=== PATIENT | male | born 1945 | race Caucasian/White ===

== ENCOUNTER 2023-04-02 12:59 | Inpatient (IN) | payer OTHER ==
[2023-04-02 14:03] LABS: INR 1.08 (0.83-1.09); PROTHROMBIN TIME (PATIENT) 12.5 SEC (9.7-13.0)
[2023-04-02 14:16] LABS: HEMATOCRIT 48.4 % (35.4-49); HEMOGLOBIN 16.2 G/dL (11.7-16.9); MCH 31.1 pg (25.7-33.7); MCHC 33.4 g/dl (32.0-35.9); MEAN PLT VOLUME 10.5 fl (7.5-11.1); PLATELET COUNT 134.8 10^3/uL (134-434); WHITE BLOOD COUNT 7.2 10^3/uL (4.0-10.8)
[2023-04-02 14:21] LABS: ALBUMIN 3.9 g/dl (3.4-5.0); BILIRUBIN,TOTAL 1.4 mg/dl (0.2-1); CALCIUM 10.2 mg/dl (8.5-10.1); CREATININE 1.1 mg/dl (0.6-1.3); MAGNESIUM 1.9 mg/dL (1.8-2.4); POTASSIUM 3.4 mmol/L (3.5-5.1); TOT PROT 5.9 g/dl (6.4-8.2)
[2023-04-02 14:25] LABS: PLATELET ESTIMATE ADEQUATE
[2023-04-02 15:04] LABS: EPITHELIAL CELLS 0-5 /hpf
[2023-04-02 15:05] LABS: CALCIUM OXALATE CRYSTALS MODERATE /hpf (NONE SEEN)
[2023-04-02 15:09] LABS: N-TERMINAL BNP 413.5 pg/ml (5-450)
[2023-04-02 20:28] VITALS: BMI 36.9
[2023-04-02] MEDS ORDERED: SODIUM CHLORIDE 0.45% 1,000 ML IV SCH (23:45)
[2023-04-03] MEDS ORDERED: POTASSIUM CHLORIDE TABS 20 MEQ TABLET.ER (FP) PO ONE (00:15)
[2023-04-03] MEDS: ATORVASTATIN CA 20 MG TABLET (FP) PO SCH ×2 (01:07→21:58)
[2023-04-03 08:03] LABS: HEMATOCRIT 45.9 % (35.4-49); HEMOGLOBIN 15.1 G/dL (11.7-16.9); MCH 30.1 pg (25.7-33.7); MEAN CELL VOLUME 91.2 fl (80-96); MEAN PLT VOLUME 10.6 fl (7.5-11.1); RBC 5.03 10^6/uL (4.00-5.60); RDW 14.6 % (11.9-15.9); WHITE BLOOD COUNT 6.7 10^3/uL (4.0-10.8)
[2023-04-03 08:48] LABS: BILIRUBIN,TOTAL 1.4 mg/dl (0.2-1); CALCIUM 10.2 mg/dl (8.5-10.1); CREATININE 0.9 mg/dl (0.6-1.3); MAGNESIUM 1.9 mg/dL (1.8-2.4); PHOSPHOROUS 2.8 (2.5-4.9); POTASSIUM 3.9 mmol/L (3.5-5.1)
[2023-04-03] MEDS ORDERED: ENALAPRIL MALEATE 10 MG TABLET PO SCH (10:00)
[2023-04-03] MEDS ORDERED: ENOXAPARIN NA (PORCINE) 40 MG/0.4 ML DISP.SYRIN SQ SCH (10:00)
[2023-04-03] MEDS ORDERED: CEFTRIAXONE 1 GM in DEXTROSE 5%-WATER - 50 ML IVPB SCH (10:00)
[2023-04-04 08:32] LABS: BASO % 0.9 % (0-2.0); EOS % 5.9 % (0-4.5); HEMATOCRIT 44.9 % (35.4-49); HEMOGLOBIN 15.9 GM/dL (11.7-16.9); LYMPH % 20.6 % (8-40); MCH 31.1 pg (25.7-33.7); MCHC 35.3 g/dl (32.0-35.9); MEAN PLT VOLUME 10.4 fl (7.5-11.1); MONO % 11.6 % (3.8-10.2); PLATELET COUNT 146 10^3/uL (134-434); RBC 5.11 M/mm3 (4.00-5.60); RDW 14.2 % (11.9-15.9); WHITE BLOOD COUNT 6.6 K/mm3 (4.0-10.0)
[2023-04-04 08:34] LABS: POTASSIUM 3.7 mmol/L (3.5-5.1)
[2023-04-04 08:47] LABS: CALCIUM 10.3 mg/dL (8.5-10.1)
[2023-04-04 08:48] LABS: MAGNESIUM 1.9 mg/dL (1.8-2.4)
[2023-04-04 08:51] LABS: CREATININE 0.9 mg/dL (0.55-1.3); PHOSPHOROUS 2.7 mg/dL (2.5-4.9)
[2023-04-04 08:52] LABS: BLOOD UREA NITROGEN 19.4 mg/dL (7-18)
[2023-04-04] MEDS: ENOXAPARIN NA (PORCINE) 40 MG/0.4 ML DISP.SYRIN SQ SCH (09:45)
[2023-04-04] MEDS: POLYETHYLENE GLYCOL (HEALTHYLAX) 3350 17 GM PACKET PO SCH (09:46)
[2023-04-04] MEDS ORDERED: CEFTRIAXONE 1 GM in DEXTROSE 5%-WATER - 50 ML IVPB SCH (10:00)
[2023-04-04 18:46] LABS: BILIRUBIN,DIRECT 0.3 mg/dL (0.0-0.2)
[2023-04-04] MEDS ORDERED: ATORVASTATIN CA 20 MG TABLET (FP) PO SCH (22:00)
[2023-04-05] MEDS: POLYETHYLENE GLYCOL (HEALTHYLAX) 3350 17 GM PACKET PO SCH (09:15)
[2023-04-05] MEDS: ENOXAPARIN NA (PORCINE) 40 MG/0.4 ML DISP.SYRIN SQ SCH (09:15)
[2023-04-05] MEDS ORDERED: ENALAPRIL MALEATE 10 MG TABLET PO SCH (10:00)
[2023-04-05] MEDS ORDERED: DOCUSATE SODIUM 100 MG CAPSULE (FP) PO ONE (14:39)
[2023-04-05 14:50] VITALS: BP 158/90; PULSE 80; RESP 20; TEMP 98.5
== END 2023-04-05 17:13 | disposition home or self-care (01) | DRG 309 ==
LOC: FER 12:59 → FM/S 18:16 → J4W 04-03 17:49
PROVIDERS: ADMIT Internal Medicine; ATTEND Internal Medicine
DX: I44.1 Atrioventricular block, second degree (principal); N30.00 Acute cystitis without hematuria; R55 Syncope and collapse; I10 Essential (primary) hypertension; E78.5 Hyperlipidemia, unspecified; E87.6 Hypokalemia; E83.52 Hypercalcemia; R00.1 Bradycardia, unspecified; F03.90 Unspecified dementia, unspecified severity, without behavioral disturbance, psychotic disturbance, mood disturbance, and anxiety; R31.29 Other microscopic hematuria; R82.81 Pyuria; N28.1 Cyst of kidney, acquired
CPT/HCPCS: 36415; 71045-TC-FY; 74176-TC; 76775-TC; 76856-TC; 80048; 80053; 80061; 81003; 81015; 82248; 82550; 83036; 83735; 83880; 84100; 84443; 84484; 85025; 85027; 85610; 86850; 86900; 86901; 87086; 93005; 93010; 93306-TC; 93880-TC; 97116-GP; 97161-GP; 99285-25